=== PATIENT | male | born 1945 | race Caucasian/White ===

== ENCOUNTER 2020-10-31 04:14 | Inpatient (IN) | payer BC, MEDICARE ==
[~2020-10-31] VITALS: Ht 188 cm; Wt 108.8 kg
--- NOTE | 2020-10-31 04:26 | NUR ---
FRANCIA ARAUJO, PT HERE VISITING FROM [place]. HX COPD, PT IN SOME RESP DISTRESS. STATES SYMPTOMS HAVE BEEN GOING ON FOR MONTHS BUT WORSE SINCE HE CAME INTO TOWN. PT ATTACHED TO ALL MONITORS. PT ON NON REBREATHER, DR KHANNA SAID TO HOLD C PAP FOR NOW.
--- NOTE | 2020-10-31 04:29 | NUR ---
UNABLE TO OBTAIN HOME MEDS BECAUSE PT IS UNABLE TO REMEMBER THEM
--- NOTE | 2020-10-31 04:40 | NUR ---
REPORT TO PRIMARY RN JOE
[2020-10-31 04:46] LABS: MEAN CORPUSCULAR HEMOGLOBIN 33.4 pg (27.5-34.5); MEAN CORPUSCULAR HGB CONC 33.5 g/dL (33.2-36.2); MEAN PLATELET VOLUME 10.4 fL (7.4-10.4); PLATELET COUNT 301 x10^3/uL (130-400); RED BLOOD COUNT 3.83 x10^6/uL (4.38-5.82); RED CELL DISTRIBUTION WIDTH 15.5 % (9.4-14.8)
[2020-10-31 04:53] LABS: ALANINE AMINOTRANSFERASE 42 U/L (12-78); ALBUMIN 4.2 g/dL (3.4-5.0); ANION GAP 10 mmol/L (5-15); CHLORIDE 104 mmol/L (98-107); CREATININE 1.07 mg/dL (0.7-1.3)
[2020-10-31 04:57] LABS: ALKALINE PHOSPHATASE 78 U/L (45-117); BILIRUBIN,TOTAL 2.6 mg/dL (0.2-1.0); TOTAL PROTEIN 7.1 g/dL (6.4-8.2)
--- NOTE | 2020-10-31 05:02 | NUR ---
critical lab: trop 1.568
[2020-10-31] MEDS ORDERED: ASPIRIN 81 MG TABLET CHEW ONE (05:08)
--- NOTE | 2020-10-31 05:11 | NUR ---
sarah at [facility]. at [facility], spoke c pt & family about plan to admit. will ctm.
[2020-10-31 05:26] LABS: <PLATELET ESTIMATE> ADEQUATE; <PLT MORPHOLOGY> NORMAL PLT MORPH; ANISOCYTOSIS 1+; BAND#(MANUAL) 1.82 x10^3/uL; BANDS%(MANUAL) 23 % (0-7); MONOS#(MANUAL) 0.08 x10^3/uL (0.3-2.7); MONOS% (MANUAL) 1 % (2-9); SEGS% (MANUAL) 76 % (42-75)
[2020-10-31] MEDS ORDERED: ASPIRIN 81 MG TABLET CHEW PO ONE (05:30)
[2020-10-31] MEDS ORDERED: HEPARIN 25,000 UNITS/250ML PMX 250 ML IV PRN (05:30)
[2020-10-31] MEDS ORDERED: VANCOMYCIN 2,100 MG in SODIUM CHLORIDE 0.9% 500 ML IV ONE (05:30)
[2020-10-31] MEDS ORDERED: PIPERACILLIN/TAZO/PMX 3.375GM 50 ML IVPB ONE (05:30)
[2020-10-31] MEDS ORDERED: HEPARIN 5,000 UNITS/ML, 1ML IV ONE ×2 (05:30→07:00)
[2020-10-31] MEDS ORDERED: SODIUM CHLORIDE 0.9% 1,000ML IVBOLUS ONE (05:30)
[2020-10-31] MEDS ORDERED: ALBUTEROL SULFATE 2.5 MG/3 ML NPPB ONE (05:30)
[2020-10-31] MEDS ORDERED: VANCOMYCIN PER PHARMACY MC ONE (05:30)
[2020-10-31] MEDS ORDERED: HEPARIN 25,000 UNITS/250ML PMX 250 ML ONE (05:46)
[2020-10-31] MEDS ORDERED: HEPARIN 5,000 UNITS/ML, 1ML ONE (05:46)
[2020-10-31] MEDS ORDERED: OMNIPAQUE 350 MG/ML, 75ML BOTTLE ONE (06:01)
[2020-10-31] MEDS ORDERED: ALBUTEROL SULFATE 2.5 MG/3 ML ONE (06:25)
[2020-10-31] MEDS: HEPARIN 25,000 UNITS/250ML PMX 250 ML IV PRN (06:56)
[2020-10-31] MEDS ORDERED: OXYcodone IR 5MG TABLET PO PRN (07:00)
[2020-10-31] MEDS ORDERED: POLYETHYLENE GLYCOL 17 GM PACKET PO PRN (07:00)
[2020-10-31] MEDS ORDERED: morphine SULFATE 10 MG/ML, 1ML IVPush PRN (07:00)
[2020-10-31] MEDS ORDERED: CEFTRIAXONE PMX 2GM/50ML 50 ML IVPB SCH (07:00)
[2020-10-31] MEDS ORDERED: LABETALOL 5MG/ML, 20ML IVPush PRN (07:00)
[2020-10-31] MEDS ORDERED: ENALAPRILAT 1.25 MG/ML, 2ML IVPush PRN (07:00)
[2020-10-31] MEDS ORDERED: ONDANSETRON 2MG/ML, 2ML IVPush PRN (07:00)
[2020-10-31] MEDS ORDERED: BISACODYL 10 MG SUPP PR PRN (07:00)
[2020-10-31] MEDS: INSULIN LISPRO 100 UNITS/ML, PEN SQ-INSULIN SCH ×4 (07:12→20:58)
--- NOTE | 2020-10-31 07:49 | NUR ---
PHONE REPORT TO ROANK HYLTON RM 550
[2020-10-31] MEDS ORDERED: ALBUTEROL/IPRATROPIUM 2.5MG/0.5MG, 3 ML NPPB SCH (08:30)
[2020-10-31] MEDS: SODIUM CHLORIDE 0.9% 1,000 ML IV SCH ×2 (08:47→20:58)
[2020-10-31] MEDS: AZITHROMYCIN 500 MG in SODIUM CHLORIDE 0.9% 250 ML IV SCH (08:48)
[2020-10-31] MEDS: SENNA/DOCUSATE TABLET PO SCH (09:00)
[2020-10-31 09:13] VITALS: BP 115/58
[2020-10-31] MEDS ORDERED: LIDOCAINE-MPF 1%, 2ML ENDO PRN (10:00)
[2020-10-31] MEDS: ALBUTEROL/IPRATROPIUM 2.5MG/0.5MG, 3 ML NPPB SCH ×4 (10:00→22:00)
[2020-10-31] MEDS ORDERED: PHARMACY MAY ADJ FOR RENAL FX MC SCH (10:00)
[2020-10-31] MEDS: methylPREDNISolone SOD SUCC 125 MG/2 ML IVPush SCH ×3 (10:05→23:45)
[2020-10-31 10:07] LABS: MICROSCOPIC NOT IND
[2020-10-31] MEDS ORDERED: MIDAZOLAM 1 MG/ML, 5ML ONE (10:23)
[2020-10-31] MEDS ORDERED: MIDAZOLAM HCL 50 MG in SODIUM CHLORIDE 0.9% 40 ML IV PRN (10:30)
[2020-10-31] MEDS ORDERED: MIDAZOLAM 1 MG/ML, 5ML IVPush ONE ×2 (10:30)
[2020-10-31] MEDS: FENTANYL PF 100 MCG/2ML IVPush PRN (10:43)
[2020-10-31] MEDS ORDERED: METF500T17 PO (11:43)
[2020-10-31] MEDS ORDERED: FLUT1BLS3 IH (11:43)
[2020-10-31] MEDS ORDERED: FINA5TAB4 PO (11:43)
[2020-10-31] MEDS ORDERED: FURO20TA3 PO (11:43)
[2020-10-31] MEDS ORDERED: TAMS-11 PO (11:43)
[2020-10-31] MEDS ORDERED: NOREPINEPHRINE 8 MG in SODIUM CHLORIDE 0.9% 242 ML IV PRN (12:30)
[2020-10-31] MEDS: ACETAMINOPHEN 325 MG TABLET PO PRN (12:34)
[2020-10-31] MEDS: HEPARIN 5,000 UNITS/ML, 1ML IV PRN (14:19)
[2020-10-31] MEDS: PROPOFOL 100 ML IV PRN ×2 (16:32→21:15)
[2020-10-31] MEDS: NOREPINEPHRINE 32 MG in SODIUM CHLORIDE 0.9% 218 ML IV PRN (17:41)
[2020-11-01 02:21] LABS: MEAN CORPUSCULAR HEMOGLOBIN 33.5 pg (27.5-34.5); MEAN CORPUSCULAR HGB CONC 32.9 g/dL (33.2-36.2); PLATELET COUNT 280 x10^3/uL (130-400); RED BLOOD COUNT 3.88 x10^6/uL (4.38-5.82); RED CELL DISTRIBUTION WIDTH 16.4 % (9.4-14.8)
[2020-11-01 02:31] LABS: ALANINE AMINOTRANSFERASE 62 U/L (12-78); ALBUMIN 3.3 g/dL (3.4-5.0); ANION GAP 9 mmol/L (5-15); CALCIUM 7.6 mg/dL (8.5-10.1); CHLORIDE 109 mmol/L (98-107); CREATININE 1.85 mg/dL (0.7-1.3)
[2020-11-01 02:35] LABS: ALKALINE PHOSPHATASE 40 U/L (45-117); BILIRUBIN,TOTAL 1.7 mg/dL (0.2-1.0); TOTAL PROTEIN 6.5 g/dL (6.4-8.2)
[2020-11-01] MEDS: INSULIN LISPRO 100 UNITS/ML, PEN SQ-INSULIN SCH ×4 (02:37→20:10)
[2020-11-01] MEDS: NOREPINEPHRINE 32 MG in SODIUM CHLORIDE 0.9% 218 ML IV PRN ×2 (02:40→23:18)
[2020-11-01] MEDS: ALBUTEROL/IPRATROPIUM 2.5MG/0.5MG, 3 ML NPPB SCH ×6 (02:50→23:00)
[2020-11-01 02:57] LABS: BAND#(MANUAL) 7.45 x10^3/uL; BANDS%(MANUAL) 54 % (0-7); LYMPH#(MANUAL) 0.83 x10^3/uL (1-3.4); LYMPHS% (MANUAL) 6 % (22-44); MONOS#(MANUAL) 0.28 x10^3/uL (0.3-2.7); MONOS% (MANUAL) 2 % (2-9); REACTIVE LYMPHS # (MANUAL) 0.41 x10^3/uL (0-0); REACTIVE LYMPHS % (MANUAL) 3 % (0-0); SEG#(MANUAL) 4.83 x10^3/uL (1.8-6.8); SEGS% (MANUAL) 35 % (42-75)
[2020-11-01 02:58] LABS: ANISOCYTOSIS 1+
[2020-11-01 02:59] LABS: ECHINOCYTES 1+; OVALOCYTES 1+; POLYCHROMASIA 1+; TEAR DROPS 1+
[2020-11-01 03:00] LABS: <PLATELET ESTIMATE> ADEQUATE; LARGE PLATELETS 1+
[2020-11-01] MEDS: PROPOFOL 100 ML IV PRN ×6 (03:08→21:26)
[2020-11-01] MEDS ORDERED: MAGNESIUM SULFATE PMX 2GM/50ML 50 ML IV ONE ×2 (05:00→07:00)
[2020-11-01] MEDS: HEPARIN 25,000 UNITS/250ML PMX 250 ML IV PRN (05:28)
[2020-11-01] MEDS: SODIUM CHLORIDE 0.9% 1,000 ML IV SCH ×2 (05:29→21:26)
[2020-11-01] MEDS: methylPREDNISolone SOD SUCC 125 MG/2 ML IVPush SCH ×2 (05:29→17:31)
[2020-11-01] MEDS ORDERED: SODIUM BICARB 8.4%, 50ML SYRINGE ONE (06:42)
[2020-11-01] MEDS ORDERED: SODIUM BICARB 8.4%, 50ML SYRINGE IVPush ONE (07:00)
[2020-11-01] MEDS: AZITHROMYCIN 500 MG in SODIUM CHLORIDE 0.9% 250 ML IV SCH (08:07)
[2020-11-01] MEDS: FENTANYL PF 100 MCG/2ML IVPush PRN ×2 (08:26→22:05)
[2020-11-01] MEDS: SENNA/DOCUSATE TABLET PO SCH (09:00)
[2020-11-01 09:16] LABS: GASTRIC OCCULT BLD POSITIVE (NEGATIVE); GASTRIC PH 2 (1-7)
[2020-11-01] MEDS: MEROPENEM 1 GM in SODIUM CHLORIDE 0.9% 100 ML IV SCH ×2 (09:30→16:41)
[2020-11-01] MEDS: PANTOPRAZOLE 40 MG IV IVPush SCH ×2 (09:51→20:09)
[2020-11-01] MEDS ORDERED: FUROSEMIDE 40 MG/4 ML IV ONE (14:30)
[2020-11-01] MEDS ORDERED: FILTER 0.22 MICRON IV PRN (16:00)
[2020-11-01] MEDS ORDERED: AMIODARONE 150 MG in DEXTROSE 5% 100 ML IV ONE ×3 (16:00→23:30)
[2020-11-01] MEDS: AMIODARONE 450 MG in DEXTROSE 5% 241 ML IV PRN ×2 (16:12→23:17)
[2020-11-01] MEDS: ACETAMINOPHEN 325 MG TABLET PO PRN (20:10)
[2020-11-02] MEDS: PROPOFOL 100 ML IV PRN ×8 (00:41→21:45)
[2020-11-02] MEDS: MEROPENEM 1 GM in SODIUM CHLORIDE 0.9% 100 ML IV SCH (01:13)
[2020-11-02] MEDS: ALBUTEROL/IPRATROPIUM 2.5MG/0.5MG, 3 ML NPPB SCH ×6 (03:00→23:00)
[2020-11-02] MEDS: INSULIN LISPRO 100 UNITS/ML, PEN SQ-INSULIN SCH ×4 (03:06→20:48)
[2020-11-02] MEDS: HEPARIN 25,000 UNITS/250ML PMX 250 ML IV PRN (04:14)
[2020-11-02 04:48] LABS: MEAN CORPUSCULAR HEMOGLOBIN 33.2 pg (27.5-34.5); MEAN CORPUSCULAR HGB CONC 32.6 g/dL (33.2-36.2); MEAN PLATELET VOLUME 12.7 fL (7.4-10.4); PLATELET COUNT 133 x10^3/uL (130-400); RED CELL DISTRIBUTION WIDTH 16.2 % (9.4-14.8)
[2020-11-02 05:12] LABS: ANION GAP 15 mmol/L (5-15); CALCIUM 6.9 mg/dL (8.5-10.1); CHLORIDE 104 mmol/L (98-107); CREATININE 4.55 mg/dL (0.7-1.3)
[2020-11-02] MEDS: methylPREDNISolone SOD SUCC 125 MG/2 ML IVPush SCH ×2 (05:14→18:04)
[2020-11-02] MEDS: HEPARIN 5,000 UNITS/ML, 1ML IV PRN (05:15)
[2020-11-02 05:41] LABS: LYMPH#(MANUAL) 0.38 x10^3/uL (1-3.4); LYMPHS% (MANUAL) 1 % (22-44); METAMYELOCYTES# (MANUAL) 2.66 x10^3/uL (0-0); METAMYELOCYTES% (MANUAL) 7 % (0-1); MONOS#(MANUAL) 1.52 x10^3/uL (0.3-2.7); MONOS% (MANUAL) 4 % (2-9)
[2020-11-02 05:43] LABS: BAND#(MANUAL) 21.28 x10^3/uL; BANDS%(MANUAL) 56 % (0-7); SEG#(MANUAL) 12.16 x10^3/uL (1.8-6.8); SEGS% (MANUAL) 32 % (42-75)
[2020-11-02 05:44] LABS: ANISOCYTOSIS 1+; ECHINOCYTES 1+; OVALOCYTES 1+; PMNS WITH VACUOLES 1+; TEAR DROPS 1+
[2020-11-02 05:46] LABS: <PLATELET ESTIMATE> ADEQUATE; LARGE PLATELETS 1+
[2020-11-02] MEDS ORDERED: CALCIUM GLUCONATE 4.6 MEQ/10 ML IVPush ONE ×4 (06:00→09:00)
[2020-11-02] MEDS ORDERED: SODIUM BICARB 8.4%, 50ML SYRINGE ONE (07:01)
[2020-11-02] MEDS ORDERED: SODIUM CHLORIDE 0.9%, 500ML IVBOLUS ONE (07:30)
[2020-11-02] MEDS ORDERED: SODIUM BICARB 8.4%, 50ML SYRINGE IVPush ONE (07:30)
[2020-11-02 08:04] LABS: ANION GAP 12 mmol/L (5-15); CALCIUM 7.4 mg/dL (8.5-10.1); CHLORIDE 105 mmol/L (98-107)
[2020-11-02] MEDS: SENNA/DOCUSATE TABLET PO SCH (08:31)
[2020-11-02] MEDS: PANTOPRAZOLE 40 MG IV IVPush SCH ×2 (09:06→20:48)
[2020-11-02] MEDS: NOREPINEPHRINE 32 MG in SODIUM CHLORIDE 0.9% 218 ML IV PRN ×2 (10:19→19:59)
[2020-11-02] MEDS ORDERED: MEROPENEM 1 GM in SODIUM CHLORIDE 0.9% 100 ML IV SCH ×2 (13:00→15:00)
[2020-11-03] MEDS: PROPOFOL 100 ML IV PRN ×6 (01:18→21:35)
[2020-11-03] MEDS: ACETAMINOPHEN 325 MG TABLET PO PRN (01:18)
[2020-11-03] MEDS: HEPARIN 25,000 UNITS/250ML PMX 250 ML IV PRN ×2 (01:22→16:34)
[2020-11-03] MEDS: ALBUTEROL/IPRATROPIUM 2.5MG/0.5MG, 3 ML NPPB SCH ×6 (02:34→22:55)
[2020-11-03] MEDS: SODIUM CHLORIDE 0.9% 1,000 ML IV SCH ×2 (03:00→23:27)
[2020-11-03] MEDS: INSULIN LISPRO 100 UNITS/ML, PEN SQ-INSULIN SCH ×4 (03:44→21:56)
[2020-11-03 05:01] LABS: ANION GAP 13 mmol/L (5-15); CHLORIDE 101 mmol/L (98-107); CREATININE 5.82 mg/dL (0.7-1.3)
[2020-11-03 05:02] LABS: TRIGLYCERIDES 244 mg/dL (50-200)
[2020-11-03 05:07] LABS: RED BLOOD COUNT 3.19 x10^6/uL (4.38-5.82)
[2020-11-03 05:55] LABS: MEAN CORPUSCULAR HEMOGLOBIN 33.1 pg (27.5-34.5)
[2020-11-03 05:56] LABS: MEAN CORPUSCULAR HGB CONC 32.7 g/dL (33.2-36.2); MEAN PLATELET VOLUME 12.8 fL (7.4-10.4); PLATELET COUNT 95 x10^3/uL (130-400)
[2020-11-03 05:58] LABS: BAND#(MANUAL) 14.24 x10^3/uL; BANDS%(MANUAL) 39 % (0-7); LYMPH#(MANUAL) 0.73 x10^3/uL (1-3.4); LYMPHS% (MANUAL) 2 % (22-44); MONOS% (MANUAL) 3 % (2-9); SEG#(MANUAL) 20.44 x10^3/uL (1.8-6.8); SEGS% (MANUAL) 56 % (42-75)
[2020-11-03 05:59] LABS: ANISOCYTOSIS 1+; ECHINOCYTES 1+; OVALOCYTES 1+; TEAR DROPS 1+
[2020-11-03 06:01] LABS: <PLATELET ESTIMATE> DECREASED; LARGE PLATELETS 1+; TOXIC GRAN 1+
[2020-11-03] MEDS: HEPARIN 5,000 UNITS/ML, 1ML IV PRN (06:09)
[2020-11-03] MEDS: methylPREDNISolone SOD SUCC 125 MG/2 ML IVPush SCH (06:09)
[2020-11-03] MEDS: PANTOPRAZOLE 40 MG IV IVPush SCH ×2 (07:55→21:36)
[2020-11-03] MEDS: SENNA/DOCUSATE TABLET PO SCH (07:55)
[2020-11-03] MEDS: PHENYLEPHRINE 50 MG in SODIUM CHLORIDE 0.9% 245 ML IV PRN ×3 (14:03→23:27)
[2020-11-03] MEDS ORDERED: MEROPENEM 1 GM in SODIUM CHLORIDE 0.9% 100 ML IV SCH (16:00)
[2020-11-04] MEDS: NOREPINEPHRINE 32 MG in SODIUM CHLORIDE 0.9% 218 ML IV PRN (01:49)
[2020-11-04 02:15] LABS: MEAN CORPUSCULAR HEMOGLOBIN 33.2 pg (27.5-34.5); MEAN CORPUSCULAR HGB CONC 32.6 g/dL (33.2-36.2); MEAN PLATELET VOLUME 13.6 fL (7.4-10.4); PLATELET COUNT 63 x10^3/uL (130-400); RED BLOOD COUNT 3.06 x10^6/uL (4.38-5.82); RED CELL DISTRIBUTION WIDTH 17.2 % (9.4-14.8)
[2020-11-04 02:23] LABS: ALANINE AMINOTRANSFERASE 737 U/L (12-78); ALBUMIN 2.5 g/dL (3.4-5.0); ANION GAP 22 mmol/L (5-15); CALCIUM 6.7 mg/dL (8.5-10.1); CHLORIDE 98 mmol/L (98-107); CREATININE 6.73 mg/dL (0.7-1.3)
[2020-11-04 02:33] LABS: ALKALINE PHOSPHATASE 156 U/L (45-117); BILIRUBIN,TOTAL 2.5 mg/dL (0.2-1.0); TOTAL PROTEIN 5.3 g/dL (6.4-8.2)
[2020-11-04] MEDS: ALBUTEROL/IPRATROPIUM 2.5MG/0.5MG, 3 ML NPPB SCH ×2 (02:43→07:00)
[2020-11-04 02:44] LABS: BAND#(MANUAL) 6.18 x10^3/uL; BANDS%(MANUAL) 29 % (0-7); LYMPH#(MANUAL) 0.21 x10^3/uL (1-3.4); LYMPHS% (MANUAL) 1 % (22-44); METAMYELOCYTES# (MANUAL) 0.21 x10^3/uL (0-0); METAMYELOCYTES% (MANUAL) 1 % (0-1); MONOS#(MANUAL) 0.64 x10^3/uL (0.3-2.7); MONOS% (MANUAL) 3 % (2-9); SEG#(MANUAL) 14.06 x10^3/uL (1.8-6.8); SEGS% (MANUAL) 66 % (42-75)
[2020-11-04] MEDS ORDERED: SODIUM BICARB 8.4%, 50ML SYRINGE ONE ×2 (02:44→06:13)
[2020-11-04 02:45] LABS: ANISOCYTOSIS 1+; ECHINOCYTES 1+; OVALOCYTES 1+
[2020-11-04 02:46] LABS: <PLATELET ESTIMATE> DECREASED; LARGE PLATELETS 1+; SCHISTOCYTES 1+; TOXIC GRAN 1+
[2020-11-04] MEDS ORDERED: DEXTROSE 10% 1,000 ML IV SCH (03:00)
[2020-11-04] MEDS ORDERED: DEXTROSE 50%, 50ML SYRINGE IVPush ONE (03:00)
[2020-11-04] MEDS ORDERED: CALCIUM GLUCONATE 0.46MEQ/1ML IVPush ONE (03:00)
[2020-11-04] MEDS ORDERED: SODIUM BICARBONATE 1 MEQ/ML, 50ML VIAL IVPush ONE (03:00)
[2020-11-04] MEDS ORDERED: INSULIN REGULAR 100 UNITS/ML, 3ML VIAL IVPush ONE (03:00)
[2020-11-04] MEDS: INSULIN LISPRO 100 UNITS/ML, PEN SQ-INSULIN SCH (03:22)
[2020-11-04] MEDS: PROPOFOL 100 ML IV PRN (04:32)
[2020-11-04 04:53] LABS: ALANINE AMINOTRANSFERASE 987 U/L (12-78); ALBUMIN 2.5 g/dL (3.4-5.0); ANION GAP 27 mmol/L (5-15); CALCIUM 6.8 mg/dL (8.5-10.1); CHLORIDE 94 mmol/L (98-107); CREATININE 7.16 mg/dL (0.7-1.3)
[2020-11-04] MEDS ORDERED: SODIUM BICARBONATE 8.4% 150 MEQ in DEXTROSE 5% 1,000 ML IV SCH (05:00)
[2020-11-04 05:03] LABS: ALKALINE PHOSPHATASE 185 U/L (45-117); BILIRUBIN,TOTAL 2.8 mg/dL (0.2-1.0); TOTAL PROTEIN 5.2 g/dL (6.4-8.2)
[2020-11-04] MEDS: PHENYLEPHRINE 50 MG in SODIUM CHLORIDE 0.9% 245 ML IV PRN (05:47)
[2020-11-04] MEDS ORDERED: CALCIUM CHLORIDE 27.2 MEQ in SODIUM CHLORIDE 0.9% 100 ML IV ONE (06:30)
[2020-11-04] MEDS ORDERED: SODIUM BICARB 8.4%, 50ML SYRINGE IVPush ONE (07:00)
[2020-11-04] MEDS: FENTANYL PF 100 MCG/2ML IVPush PRN (07:33)
[2020-11-04] MEDS ORDERED: methylPREDNISolone SOD SUCC 125 MG/2 ML IVPush SCH (09:00)
== END 2020-11-04 07:34 | disposition expired | DRG 871 ==
LOC: ED 04:27 → EDIP 06:44 → CCU 08:06
PROVIDERS: ADMIT Internal Medicine; ATTEND Internal Medicine
PROC: 0T9B70Z Drainage of Bladder with Drainage Device, Via Natural or Artificial Opening (ICD-10-PCS; principal; 2020-10-31)
PROC: 5A1945Z Respiratory Ventilation, 24-96 Consecutive Hours (ICD-10-PCS; 2020-10-31)
PROC: 0BH17EZ Insertion of Endotracheal Airway into Trachea, Via Natural or Artificial Opening (ICD-10-PCS; 2020-10-31)
PROC: 02HV33Z Insertion of Infusion Device into Superior Vena Cava, Percutaneous Approach (ICD-10-PCS; 2020-10-31)
PROC: B548ZZA Ultrasonography of Superior Vena Cava, Guidance (ICD-10-PCS; 2020-10-31)
PROC: 0B9J8ZX Drainage of Left Lower Lung Lobe, Via Natural or Artificial Opening Endoscopic, Diagnostic (ICD-10-PCS; 2020-10-31)
PROC: 0B9H8ZX Drainage of Lung Lingula, Via Natural or Artificial Opening Endoscopic, Diagnostic (ICD-10-PCS; 2020-10-31)
PROC: 0B9F8ZX Drainage of Right Lower Lung Lobe, Via Natural or Artificial Opening Endoscopic, Diagnostic (ICD-10-PCS; 2020-10-31)
PROC: 03HY32Z Insertion of Monitoring Device into Upper Artery, Percutaneous Approach (ICD-10-PCS; 2020-10-31)
PROC: 5A0935A Assistance with Respiratory Ventilation, Less than 24 Consecutive Hours, High Flow/Velocity Cannula (ICD-10-PCS; 2020-10-31)
PROC: 02HV33Z Insertion of Infusion Device into Superior Vena Cava, Percutaneous Approach (ICD-10-PCS; 2020-11-02)
PROC: B548ZZA Ultrasonography of Superior Vena Cava, Guidance (ICD-10-PCS; 2020-11-02)
PROC: 5A1D70Z Performance of Urinary Filtration, Intermittent, Less than 6 Hours Per Day (ICD-10-PCS; 2020-11-02)
PROC: 5A1D70Z Performance of Urinary Filtration, Intermittent, Less than 6 Hours Per Day (ICD-10-PCS; 2020-11-04)
DX: A41.50 Gram-negative sepsis, unspecified (principal); I21.4 Non-ST elevation (NSTEMI) myocardial infarction; G93.41 Metabolic encephalopathy; N17.0 Acute kidney failure with tubular necrosis; J96.01 Acute respiratory failure with hypoxia; R65.21 Severe sepsis with septic shock; I50.23 Acute on chronic systolic (congestive) heart failure; J15.5 Pneumonia due to Escherichia coli; I42.9 Cardiomyopathy, unspecified; E46 Unspecified protein-calorie malnutrition; E87.4 Mixed disorder of acid-base balance; I47.2 Ventricular tachycardia; I48.92 Unspecified atrial flutter; J44.0 Chronic obstructive pulmonary disease with (acute) lower respiratory infection; J44.1 Chronic obstructive pulmonary disease with (acute) exacerbation; K92.0 Hematemesis; Z99.11 Dependence on respirator [ventilator] status; K92.2 Gastrointestinal hemorrhage, unspecified; D53.9 Nutritional anemia, unspecified; D69.6 Thrombocytopenia, unspecified; E11.65 Type 2 diabetes mellitus with hyperglycemia; Z68.30 Body mass index [BMI] 30.0-30.9, adult; E83.42 Hypomagnesemia; E78.5 Hyperlipidemia, unspecified; E83.51 Hypocalcemia; I27.20 Pulmonary hypertension, unspecified; I49.01 Ventricular fibrillation; I48.91 Unspecified atrial fibrillation; R57.0 Cardiogenic shock; Z66 Do not resuscitate; Z79.84 Long term (current) use of oral hypoglycemic drugs; Z82.49 Family history of ischemic heart disease and other diseases of the circulatory system; Z99.2 Dependence on renal dialysis; Z87.891 Personal history of nicotine dependence; Z86.74 Personal history of sudden cardiac arrest; N40.0 Benign prostatic hyperplasia without lower urinary tract symptoms
CPT/HCPCS: 31622; 36415; 36556; 36573; 36600; 71045; 71275; 74176; 76700; 76937; 77001; 80048; 80053; 81003; 82271; 82330; 82542; 82803; 82962; 83036; 83605; 83735; 83880; 84100; 84145; 84478; 84484; 85025; 85520; 86704; 86706; 87040; 87070; 87077; 87081; 87186; 87205; 87340; 90935; 93005; 93306; 94002; 94003; 94640; 99291; G0378; J0456; J0610; J0696; J1644; J1815; J1940; J2185; J2250; J2704; J3010; J3370; J7060; J7070; Q9967; C1751; C9113; J0282; J1642; J2270; J2370; J2930; J3475; J7030; J7040; J7050